=== PATIENT | male | born 1940 | race Caucasian/White ===

== ENCOUNTER 2019-05-07 08:19 | Day surgery (SDC) | payer MEDICARE ==
[2019-05-07 08:53] LABS: Basophils # (A) 0.1 k/uL (0-0.2); Basophils % (A) 1 %; Eosinophils # (A) 0.4 k/uL (0-0.7); Eosinophils % (A) 3 %; HCT 47.5 % (39.0-53.0); HGB 15.2 gm/dL (13.0-17.5); Lymphocytes # (A) 1.3 k/uL (1.0-4.8); Lymphocytes % (A) 11 %; MCH 34.3 pg (25.0-35.0); MCV 107.3 fL (80.0-100.0); Macrocytosis Moderate; Mean Platelet Volume 7.6; Monocytes # (A) 0.6 k/uL (0-1.0); Monocytes % (A) 5 %; Neutrophils # (A) 9.9 k/uL (1.3-7.7); Neutrophils % (A) 79 %; Platelet Count 239 k/uL (150-450); RBC 4.43 m/uL (4.30-5.90); RDW 14.6 % (11.5-15.5); WBC 12.6 k/uL (3.8-10.6)
[2019-05-07 09:12] LABS: Potassium 4.5 mmol/L (3.5-5.1)
[2019-05-07] MEDS ORDERED: LIDOCAINE 1% INJ 10MG/ML (20 ML MDV) ONE (09:57)
[2019-05-07] MEDS ORDERED: HEPARIN SODIUM,PORCINE 10,000 UNIT/ML 1 ML VIAL ONE (10:00)
[2019-05-07] MEDS ORDERED: GLYCOPYRROLATE 0.2 MG/ML 2 ML VIAL ONE (10:00)
[2019-05-07] MEDS ORDERED: PROTAMINE SULFATE 10 MG/ML 5 ML VIAL IV ONE (10:00)
[2019-05-07] MEDS ORDERED: fentaNYL (PF) 50 MCG/ML 2 ML AMP ONE (10:00)
[2019-05-07] MEDS ORDERED: PHENYLEPHRINE-0.9% NACL SYG 1 MG/10 ML SYRINGE ONE (10:00)
[2019-05-07] MEDS ORDERED: diphenhydrAMINE 50 MG/ML 1 ML VIAL ONE (10:00)
[2019-05-07] MEDS ORDERED: MIDAZOLAM 2 MG/2 ML VIAL ONE (10:00)
[2019-05-07] MEDS ORDERED: SODIUM CHLORIDE 0.9% 1,000 ML IV ONE (10:09)
[2019-05-07] MEDS ORDERED: LIDOCAINE URO-JET JELLY 2% 5 ML KIT URETHRAL ONE (10:31)
[2019-05-07] MEDS ORDERED: ceFAZolin 1,000 MG in SODIUM CHLORIDE 0.9% IRRIGATIO 250 ML IRRIGATION ONE (10:45)
[2019-05-07] MEDS ORDERED: IOPAMIDOL-250 50ML BTL IV ONE (10:48)
[2019-05-07] MEDS ORDERED: LIDOCAINE 1% INJ 10MG/ML (20 ML MDV) SQ ONE (10:55)
[2019-05-07] MEDS ORDERED: ceFAZolin 1,000 MG VIAL IVPB ONE (10:58)
[2019-05-07] MEDS ORDERED: HEPARIN SODIUM (1,000 UNIT/ML) 1,000 UNIT in SODIUM CHLORIDE 0.9% 1,000 ML IRRIGATION ONE (11:25)
[2019-05-07] MEDS ORDERED: HEPARIN SOD,PORK IN 0.45% NACL 25,000 UNIT in 0.45% NACL 1 250ML.BAG IV ONE (13:10)
[2019-05-07] MEDS ORDERED: HYDROcodone/APAP 5-325MG 1 EACH TAB PO PRN (14:51)
[2019-05-07] MEDS ORDERED: ACETAMINOPHEN TAB 325 MG TAB PO PRN (14:51)
[2019-05-07] MEDS: ACETAMINOPHEN IV (For NPO) 1,000 MG in EMPTY BAG 1 BAG IVPB ONE ×2 (16:01→16:16)
[2019-05-07] MEDS: SODIUM CHLORIDE 0.9% 1,000 ML IV SCH (18:32)
[2019-05-07 19:41] VITALS: RESP 18
[2019-05-07] MEDS: SPIRONOLACTONE 25 MG TAB PO SCH (20:43)
[2019-05-07] MEDS ORDERED: MEMANTINE 10 MG TAB PO SCH (21:00)
[2019-05-07] MEDS ORDERED: DONEPEZIL 5 MG TAB PO SCH (21:00)
[2019-05-07] MEDS ORDERED: ATORVASTATIN 40 MG TAB PO SCH (21:00)
--- NOTE | 2019-05-07 23:11 | PCN ---
PROCEDURE NOTE Willian Douglas is an 79-year-old male patient who has been complaining of tiredness, fatigue and shortness of breath with exertion. He has an atrial tachycardia with RVR, heart rates consistently above 110 to 120 beats per minute. He underwent atrial fibrillation ablation about 10 years back in [place]. 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 He was brought into the EP lab in a fasting state. Written informed consent was obtained prior to the procedure. IV antibiotics were administered. His dual-chamber ICD was interrogated and reprogrammed. ICD therapies were turned off and pacing was programmed to a backup pacing of 40 beats per minute. He was in atrial tachycardia at the start of the study. Venous sheaths were placed in the right and left femoral veins, and via these diagnostic mapping and ablation catheters were placed. A long sheath was placed on the right side. The tachycardia cycle length was 270 milliseconds. Coronary sinus catheter was placed. PentaRay catheter was placed. Mapping and ablation catheters were placed. Intracardiac echo catheter was placed. Later the catheters were removed in the His bundle area and the RV. A mapping and ablation catheter was placed in the right atrial isthmus. The coronary sinus catheter showed concentric activation, cycle length of 270 milliseconds. Entrainment mapping showed isthmus dependency with the post-pacing interval within 50 milliseconds of the tachycardia cycle length. Intracardiac echo was performed. Three-D electroanatomic mapping was performed in the right atrial isthmus and an RF line of block was made in the right atrial isthmus, from the tricuspid anulus to the eustachian ridge. This resulted in lengthening of the tachycardia to about 310 milliseconds with a slight change in the activation pattern in the coronary sinus, but the tachycardia did not terminate. A complete RF line of block was made, but the tachycardia continued with a very subtle variation in the activation pattern in the coronary sinus and an increment in the atrial cycle length. Therefore right atrial map was performed. Activation mapping was performed. Earliest activation was a broad early activation in the posteroseptal area. Activation mapping suggested that this was a left atrial exit from the septum. Left and right transseptal catheterization was performed. Intracardiac echocardiography was performed. The interatrial septum was identified. The heart was quite rotated in a clockwise rotation. Successful transseptal catheterization was performed. RA pressure was 14 x 4 x 13 and LA pressures were 23 x 3 x 13 mmHg. A long sheath was placed in the left atrium. A PentaRay catheter was placed in the left atrium and electroanatomic mapping was performed. The earliest activation was along the anterior septum just posterior to the fossa ovalis. The pulmonary veins were also active anteriorly, both on the right side and the left side. The PentaRay catheter was then placed in the right atrium and electroanatomic mapping was performed. Once again the posterior septal area showed an area of broad activation consistent with a left atrial circuit with a left exit. Mapping and ablation catheter was placed in the left atrium. RF ablation was applied at the earliest site, and this resulted in termination of the tachycardia. Following that, pulmonary vein isolation was performed anteriorly both on the right veins and the left vein. Thereafter with pacing maneuvers exit block was proven within the pulmonary veins. AV node Wenckebach block 410 milliseconds, VA Wenckebach block 510 milliseconds. Sinus cycle length 879 milliseconds. NH interval 189 milliseconds, QRS 159 milliseconds with right bundle branch block pattern. QT 459 milliseconds. AH interval 90 milliseconds, HV interval 71 milliseconds. The ICD was then reprogrammed according to the MADIT-RIT programming with 3 detection zones with long detection intervals. Appropriate antitachycardia pacing, cardioversion and defibrillations were programmed. The patient was heparinized through the procedure. At the end of the procedure, the heparin was reversed. Anticoagulation with Xarelto was continued. RESULT: Diagnostic EP study revealing 2 simultaneous atrial tachycardias, one typical atrial flutter which was proved with entrainment mapping, and the second a fairly focal tachycardia in the anterior septum just posterior to the fossa ovalis. Tachycardia was successfully terminated. Following that, pulmonary vein isolation was performed along the anterior antrum on both veins. We demonstrated exit block in all 4 veins. The patient tolerated the procedure well without any acute complications. MMODL / IJN: [id number] /
--- NOTE | 2019-05-07 23:17 | PCN ---
PROCEDURE NOTE May 07, 2019 To: Dr. Boris Stovall Re: Willian Douglas (38) Dear Dr. Stovall, Willian Douglas underwent diagnostic EP study for an atrial tachycardia. He had simultaneous typical atrial flutter as well as a left atrial tachycardia, both of which were successfully ablated. He resumed sinus rhythm as a result. Following that, his pulmonary veins were isolated. He had an atrial fibrillation ablation almost 10 years back in [place]. I would continue anticoagulation for now and continue his cardiac medications. Thank you for entrusting me with the care of your patient. Warm regards. Sincerely, MD ROSA ISELA Lorenzo / ELIANN: [id number] /
[2019-05-08] MEDS: SPIRONOLACTONE 25 MG TAB PO SCH (08:14)
[2019-05-08] MEDS ORDERED: FUROSEMIDE 40 MG TAB PO STA (08:38)
[2019-05-08] MEDS: SODIUM CHLORIDE 0.9% 1,000 ML IV SCH (08:45)
[2019-05-08] MEDS ORDERED: RIVAROXABAN 20 MG TAB PO SCH (09:00)
[2019-05-08] MEDS ORDERED: LISINOPRIL 10 MG TAB PO SCH (09:00)
[2019-05-08] MEDS ORDERED: METOPROLOL SUCCINATE (ER) 100 MG TAB.ER.24H PO SCH (09:00)
--- NOTE | 2019-05-08 09:20 | P.DS ---
Providers Attending physician: Gianluca Anderson Primary care physician: [facility] Course: Patient is an 79-year-old male with a past medical history of CAD status post CABG, atrial fibrillation status post A. fib ablation and maze procedure, ischemic cardiomyopathy status post ICD placement, and atrial tachycardia with RVR who presented for evaluation and management atrial tachycardia. He had been symptomatic with shortness of breath and fatigue. Yesterday, he underwent a diagnostic EP study revealing to simultaneous atrial tachycardias and subsequently underwent successful typical atrial flutter ablation, focal atrial tachycardia ablation, as well as pulmonary vein isolation using RF. His ICD was reprogrammed after. Patient tolerated the procedure well, no acute issues overnight. Patient seen and examined resting comfortably in bed. No chest pain, shortness of breath, orthopnea or PND. Patient ate breakfast this morning, no dysphagia or odynophagia. Patient has not gotten up and walked around yet today. EKG today shows atrial paced rhythm, right bundle branch block pattern WBC 12.6, hemoglobin 15.2, platelets 239, potassium 4.5, BUN 19, creatinine 1.09 exam: Temperature 98.4F, pulse 60, respirations 18, blood pressure 94/55, oxygen saturation 94% on room air Patient seen and examined resting comfortably in bed, in no acute distress Lungs only diminished but clear bilaterally, no crackles rhonchi or wheezing heart is regular No elevated JVD No lower extremity edema Bilateral groins nontender to palpation, no hematomas Impression Typical Atrial flutter status post successful atrial flutter ablation with RF Focal atrial tachycardia status post successful ablation with RF Atrial fibrillation status post A. fib ablation Ischemic cardiomyopathy status post ICD placement CAD status post CABG Plan Encouraged patient to get up and walk around and reassess his symptoms Discharge in the late afternoon as long as he is able to get up and walk around without any dizziness Continue all cardiac medications including anticoagulation with Xarelto Plan - Discharge Summary New Discharge Prescriptions: No Action Metoprolol Succinate [Toprol XL] 100 mg PO DAILY Donepezil [Aricept] 5 mg PO HS Rivaroxaban [Xarelto] 20 mg PO DAILY Atorvastatin [Lipitor] 40 mg PO HS Memantine [Namenda] 10 mg PO HS Spironolactone [Aldactone] 25 mg PO BID Ramipril 2.5 mg PO DAILY Discharge Medication List Atorvastatin [Lipitor] 40 mg PO HS 05/07/19 [History] Donepezil [Aricept] 5 mg PO HS 05/07/19 [History] Memantine [Namenda] 10 mg PO HS 05/07/19 [History] Metoprolol Succinate [Toprol XL] 100 mg PO DAILY 05/07/19 [History] Ramipril 2.5 mg PO DAILY 05/07/19 [History] Rivaroxaban [Xarelto] 20 mg PO DAILY 05/07/19 [History] Spironolactone [Aldactone] 25 mg PO BID 05/07/19 [History] Follow up Appointment(s)/Referral(s): Gianluca Anderson MD [STAFF PHYSICIAN] - 05/11/19 12:00 pm (follow up with Dr. Anderson/Alissa Chester/Jordyn Garcia in one to 2 weeks) Activity/Diet/Wound Care/Special Instructions: Post EP study - Ablation instructions 1. Keep access sites dry for 2 days. 2. No heavy lifting or straining for 2 days. 3. Avoid bending the hips repeatedly for 2 days. 4. You may go up and down stairs slowly Call if the following is noted 1. Bleeding, increasing swelling or pain at the access sites. 2. Increasing chest discomfort, especially upon taking a deep breath. 3. Increasing shortness of breath, at rest or with exertion. 4. Undue cough / phlegm 5. Difficulty or pain while swallowing. 6. Pain or change in color in the extremities. 7. Fever, chills, rigors. 8. Increasing headache or neurologic symptoms. 9. Dizziness, fainting, palpitations Continue all current medications including anticoagulation with Xarelto
[2019-05-08 12:08] VITALS: BP 111/65; PULSE 59; TEMP 98.2
== END 2019-05-08 16:30 | disposition home or self-care (01) ==
LOC: CATHEP 08:19 → 1SOBS 14:50 → CATHEP 05-08 16:30
PROVIDERS: ATTEND Internal Medicine Clinical Cardiac Electrophysiology
DX: I48.19 Other persistent atrial fibrillation (principal); I47.1 Supraventricular tachycardia; I25.5 Ischemic cardiomyopathy; I25.10 Atherosclerotic heart disease of native coronary artery without angina pectoris; I10 Essential (primary) hypertension; Z87.891 Personal history of nicotine dependence; E78.5 Hyperlipidemia, unspecified; I34.0 Nonrheumatic mitral (valve) insufficiency; Z95.1 Presence of aortocoronary bypass graft; Z95.5 Presence of coronary angioplasty implant and graft; Z95.810 Presence of automatic (implantable) cardiac defibrillator; Z90.79 Acquired absence of other genital organ(s); Z85.46 Personal history of malignant neoplasm of prostate; F03.90 Unspecified dementia, unspecified severity, without behavioral disturbance, psychotic disturbance, mood disturbance, and anxiety; Z82.49 Family history of ischemic heart disease and other diseases of the circulatory system; Z79.01 Long term (current) use of anticoagulants; Z79.899 Other long term (current) drug therapy
CPT/HCPCS: 97162; 85347; 93662; 93613; 93656; 80048; 85025; C1759; C1894; C1769 ×3; C1731; C1893; C1732; J2250; J2720; J1200; J1644 ×3; J0690; J2001; J3010; J0131; J2370; Q9966; 93280; 93653

== ENCOUNTER 2019-06-24 12:55 | Inpatient (IN) | payer MEDICARE ==
[2019-06-24] MEDS ORDERED: SODIUM CHLORIDE 0.9% 1,000 ML IV STA (13:00)
[2019-06-24 13:25] LABS: Basophils # (A) 0.1 k/uL (0-0.2); Basophils % (A) 1 %; Eosinophils # (A) 0.2 k/uL (0-0.7); Eosinophils % (A) 3 %; HCT 39.3 % (39.0-53.0); HGB 13.5 gm/dL (13.0-17.5); Lymphocytes # (A) 0.8 k/uL (1.0-4.8); Lymphocytes % (A) 9 %; MCH 35.7 pg (25.0-35.0); MCHC 34.4 g/dL (31.0-37.0); MCV 103.8 fL (80.0-100.0); Macrocytosis Slight; Mean Platelet Volume 6.4; Monocytes # (A) 0.4 k/uL (0-1.0); Monocytes % (A) 4 %; Neutrophils # (A) 7.3 k/uL (1.3-7.7); Neutrophils % (A) 82 %; Platelet Count 198 k/uL (150-450); RBC 3.79 m/uL (4.30-5.90); RDW 14.4 % (11.5-15.5); WBC 8.9 k/uL (3.8-10.6)
--- NOTE | 2019-06-24 13:25 | ED ---
Syncope HPI - General Stated Complaint: Near Syncope Time Seen by Provider: 06/24/19 12:55 Source: patient, family, RN notes reviewed - History of Present Illness Initial Comments: This is a 79-year-old male with a history of fibrillation with a recent ablation about a month ago also history of CVA history of some dementia who was at a zoroastrian function today had just finished eating when he felt lightheaded dizzy and almost passed out. He states he was unable to respond but he doesn't was aware of the situation and of his surroundings. He was found have what appears be atrial fibrillation with rapid ventricular response initially he had thready pulses but had a blood pressure was about 160 systolic he was given IV fluids the rate came down to about 08/21/2027 per paramedics. Pulses also were in the 120s but as high as 140's reported. No focal weakness reported at this time fevers chills nausea vomiting sweats he was feeling well prior to this. No nausea vomiting reported no focal weakness again no other modifying factors this time. MD Complaint: almost passed out - Related Data Home Medications Medication Instructions Recorded Confirmed Atorvastatin [Lipitor] 40 mg PO HS 05/07/19 05/07/19 Donepezil [Aricept] 5 mg PO HS 05/07/19 05/07/19 Memantine [Namenda] 10 mg PO HS 05/07/19 05/07/19 Metoprolol Succinate [Toprol XL] 100 mg PO DAILY 05/07/19 05/07/19 Ramipril 2.5 mg PO DAILY 05/07/19 05/07/19 Rivaroxaban [Xarelto] 20 mg PO DAILY 05/07/19 05/07/19 Spironolactone [Aldactone] 25 mg PO BID 05/07/19 05/07/19 Allergies Allergy/AdvReac Type Severity Reaction Status Date / Time No Known Allergies Allergy Verified 05/07/19 08:34 Review of Systems ROS Statement: Those systems with pertinent positive or pertinent negative responses have been documented in the HPI. ROS Other: All systems not noted in ROS Statement are negative. Past Medical History Past Medical History: Atrial Flutter, Cancer, CVA/TIA, Dementia, Memory Impairment, Myocardial Infarction ([place]), Prostate Disorder Additional Past Medical History / Comment(s): prostate cancer, cva 2008 Last Myocardial Infarction Date:: 2013 History of Any Multi-Drug Resistant Organisms: None Reported Past Surgical History: Ablation, Appendectomy, Heart Catheterization With Stent, Pacemaker Additional Past Surgical History / Comment(s): cardiac cath with about 5 stents, pacer, aicd, prostate removal Past Anesthesia/Blood Transfusion Reactions: No Reported Reaction Date of Last Stent Placement:: 2013 Type of Cardiac Device: Permanent Pacemaker, AICD Device Placement Date:: 2008 Past Psychological History: No Psychological Hx Reported Smoking Status: Former smoker Past Alcohol Use History: None Reported, Occasional Additional Past Alcohol Use History / Comment(s): smoked for a couple years in his 20's General Exam - General Exam Comments Initial Comments: This is a well-developed well-nourished male who is awake alert oriented 3 General appearance: alert, in no apparent distress Head exam: Present: atraumatic, normocephalic, normal inspection Eye exam: Present: normal appearance, PERRL, EOMI. Absent: scleral icterus, conjunctival injection, periorbital swelling ENT exam: Present: normal exam, mucous membranes moist Neck exam: Present: normal inspection, full ROM, other (No stridor JVD or bruits). Absent: tenderness, meningismus, lymphadenopathy Respiratory exam: Present: normal lung sounds bilaterally. Absent: respiratory distress, wheezes, rales, rhonchi, stridor Cardiovascular Exam: Present: tachycardia, irregular rhythm. Absent: systolic murmur, diastolic murmur, rubs, gallop, clicks GI/Abdominal exam: Present: soft, normal bowel sounds. Absent: distended, tenderness, guarding, rebound, rigid Extremities exam: Present: normal inspection, full ROM, normal capillary refill. Absent: tenderness, pedal edema, joint swelling, calf tenderness Back exam: Present: normal inspection Neurological exam: Present: alert, oriented X3, CN II-XII intact Psychiatric exam: Present: normal affect, normal mood Skin exam: Present: warm, dry, intact, normal color. Absent: rash EKG Findings - EKG Results: EKG: interpreted by ABENA (Atrial flutter with a variable AV block PVCs versus aberrantly conduction rate was 117 QRS 144 QT since QTC 32/532> block inferior changes noted.) Medical Decision Making - Medical Decision Making I did reevaluate patient on multiple occasions he has had no further episodes he does remain in the atrial flutter rate with elevated response time. IV Cardizem has been started. Patient be admitted the case was discussed with Dr. Bourgeois who did come the emergency department see the patient. Cardiology will be consulted. Patient does see Dr. Anderson - Lab Data Result diagrams: 06/24/19 13:17 06/24/19 13:17 Lab Results 06/24/19 06/24/19 06/24/19 Range/Units 13:17 13:17 13:17 WBC 8.9 (3.8-10.6) k/uL RBC 3.79 L (4.30-5.90) m/uL Hgb 13.5 (13.0-17.5) gm/dL Hct 39.3 (39.0-53.0) % MCV 103.8 H (80.0-100.0) fL MCH 35.7 H (25.0-35.0) pg MCHC 34.4 (31.0-37.0) g/dL RDW 14.4 (11.5-15.5) % Plt Count 198 (150-450) k/uL Neutrophils % 82 % Lymphocytes % 9 % Monocytes % 4 % Eosinophils % 3 % Basophils % 1 % Neutrophils # 7.3 (1.3-7.7) k/uL Lymphocytes # 0.8 L (1.0-4.8) k/uL Monocytes # 0.4 (0-1.0) k/uL Eosinophils # 0.2 (0-0.7) k/uL Basophils # 0.1 (0-0.2) k/uL Macrocytosis Slight PT 11.8 (9.0-12.0) sec INR 1.1 (<1.2) APTT 27.7 (22.0-30.0) sec Sodium 141 (137-145) mmol/L Potassium 4.4 (3.5-5.1) mmol/L Chloride 109 H (98-107) mmol/L Carbon Dioxide 23 (22-30) mmol/L Anion Gap 9 mmol/L BUN 22 H (9-20) mg/dL Creatinine 1.17 (0.66-1.25) mg/dL Est GFR (CKD-EPI)AfAm 68 (>60 ml/min/1.73 sqM) Est GFR (CKD-EPI)NonAf 59 (>60 ml/min/1.73 sqM) Glucose 120 H (74-99) mg/dL Calcium 8.2 L (8.4-10.2) mg/dL Magnesium 2.0 (1.6-2.3) mg/dL Total Bilirubin 0.9 (0.2-1.3) mg/dL AST 26 (17-59) U/L ALT 28 (21-72) U/L Alkaline Phosphatase 51 (38-126) U/L Creatine Kinase 57 (55-170) U/L Troponin I (0.000-0.034) ng/mL Total Protein 6.2 L (6.3-8.2) g/dL Albumin 3.5 (3.5-5.0) g/dL 06/24/19 Range/Units 13:17 WBC (3.8-10.6) k/uL RBC (4.30-5.90) m/uL Hgb (13.0-17.5) gm/dL Hct (39.0-53.0) % MCV (80.0-100.0) fL MCH (25.0-35.0) pg MCHC (31.0-37.0) g/dL RDW (11.5-15.5) % Plt Count (150-450) k/uL Neutrophils % % Lymphocytes % % Monocytes % % Eosinophils % % Basophils % % Neutrophils # (1.3-7.7) k/uL Lymphocytes # (1.0-4.8) k/uL Monocytes # (0-1.0) k/uL Eosinophils # (0-0.7) k/uL Basophils # (0-0.2) k/uL Macrocytosis PT (9.0-12.0) sec INR (<1.2) APTT (22.0-30.0) sec Sodium (137-145) mmol/L Potassium (3.5-5.1) mmol/L Chloride (98-107) mmol/L Carbon Dioxide (22-30) mmol/L Anion Gap mmol/L BUN (9-20) mg/dL Creatinine (0.66-1.25) mg/dL Est GFR (CKD-EPI)AfAm (>60 ml/min/1.73 sqM) Est GFR (CKD-EPI)NonAf (>60 ml/min/1.73 sqM) Glucose (74-99) mg/dL Calcium (8.4-10.2) mg/dL Magnesium (1.6-2.3) mg/dL Total Bilirubin (0.2-1.3) mg/dL AST (17-59) U/L ALT (21-72) U/L Alkaline Phosphatase (38-126) U/L Creatine Kinase (55-170) U/L Troponin I 0.020 (0.000-0.034) ng/mL Total Protein (6.3-8.2) g/dL Albumin (3.5-5.0) g/dL - Radiology Data Radiology results: report reviewed (I did review the imaging and reports no acute findings are seen.), image reviewed Disposition Clinical Impression: Near syncope, Atrial flutter with rapid ventricular response Disposition: ADMITTED IP TO THIS HOSP Condition: Fair Referrals: Cathleen Crow MD [Primary Care Provider] - 1-2 days
[2019-06-24 13:34] LABS: Albumin 3.5 g/dL (3.5-5.0); Calcium 8.2 mg/dL (8.4-10.2); INR 1.1 (<1.2); Partial Thromboplastin Time 27.7 sec (22.0-30.0); Prothrombin Time 11.8 sec (9.0-12.0); Total Bilirubin 0.9 mg/dL (0.2-1.3); Total Protein 6.2 g/dL (6.3-8.2)
--- NOTE | 2019-06-24 13:41 | CT ---
EXAMINATION TYPE: CT brain wo con DATE OF EXAM: 06/24/2019 COMPARISON: None HISTORY: 79-year-old male Syncope TECHNIQUE: Examination was done in axial plane without intravenous contrast. Coronal and sagittal r econstructions performed. CT DLP: 1072.4 mGycm Automated exposure control for dose reduction was used. FINDINGS: There is no evidence of acute intracranial hemorrhage, acute ischemic changes, mass, mass-effect, or extra-axial fluid collection. There is no effacement of cerebral sulci or basal subarachnoid cister ns. There is no hydrocephalus. There is no midline shift. Mckeon-white matter distinction is preserv ed. Incidental vertebrobasilar dolichoectasia of the vertebral artery measuring 6 mm in the basilar arter y measuring 6.5 mm. Nonemergent follow-up MRA or CTA can provide further assessment. Scattered air within the dural venous sinuses and partially visualized within a right-sided facial ve in. Also within the cavernous sinuses. Mild generalized supratentorial volume loss. Severe mucosal thickening right maxillary sinus with chronic bony wall thickening of the maxillary si nus. Scattered moderate mucosal thickening ethmoid air cells and mild left maxillary sinus. Mastoid a ir cells are well pneumatized. IMPRESSION: 1. Mild generalized atrophy. No acute intracranial abnormality seen. 2. Scattered dural venous sinus and cavernous sinus air as well as air partially visualized within a right facial vein. Findings may reflect air introduced during peripheral line placement. Correlate to exclude other venous injections. 3. Vertebrobasilar dolichoectasia. Nonemergent follow-up MRA or CTA can provide further assessment. 4. Chronic long-standing ethmoid and maxillary sinus disease.
[2019-06-24 13:43] LABS: Potassium 4.4 mmol/L (3.5-5.1)
--- NOTE | 2019-06-24 13:48 | XR ---
EXAMINATION TYPE: XR chest 2V DATE OF EXAM: 06/24/2019 COMPARISON: None HISTORY: 79-year-old male with syncope TECHNIQUE: AP and lateral views FINDINGS: Left anterior chest wall AICD generator with right atrial and right ventricular leads. Median sternot blaire wires with postoperative clips in the mediastinum. Heart mildly enlarged. Diffuse interstitial densities have a chronic appearance. Some stringy atelect asis at the left base. No consolidation or pleural effusion. IMPRESSION: Cardiomegaly and chronic appearing changes. No definite acute process.
[2019-06-24] MEDS ORDERED: DILTIAZEM 125 MG in SODIUM CHLORIDE 0.9% 100 ML IV SCH (14:30)
[2019-06-24] MEDS ORDERED: NALOXONE 0.4 MG/ML 1 ML VIAL IV PRN (14:58)
[2019-06-24] MEDS: SODIUM CHLORIDE 0.9% 1,000 ML IV SCH (16:51)
[2019-06-24 19:50] LABS: Appearance,Urine Clear (Clear); Bilirubin,Urine Negative (Negative); Blood,Urine Negative (Negative); Color,Urine Yellow; Glucose,Urine (UA) Negative (Negative); Ketones,Urine Negative (Negative); Leukocyte Esterase,Urine Negative (Negative); Nitrite,Urine Negative (Negative); Protein,Urine Negative (Negative); Specific Gravity,Urine 1.019 (1.001-1.035); Urobilinogen,Urine <2.0 mg/dL (<2.0)
[2019-06-24] MEDS: MEMANTINE 10 MG TAB PO SCH (20:03)
[2019-06-24] MEDS: ATORVASTATIN 40 MG TAB PO SCH (20:03)
[2019-06-24] MEDS: DONEPEZIL 5 MG TAB PO SCH (20:03)
[2019-06-24] MEDS: SPIRONOLACTONE 25 MG TAB PO SCH (20:03)
[2019-06-24] MEDS: TEMAZEPAM 15 MG CAP PO PRN (22:25)
[2019-06-25] MEDS: SODIUM CHLORIDE 0.9% 1,000 ML IV SCH ×2 (00:05→19:51)
--- NOTE | 2019-06-25 01:54 | P.HPIM ---
History of Present Illness H&P Date: 06/24/19 Chief Complaint: Near syncope Patient is a 79-year-old male with a known history of atrial fibrillation on anticoagulation with Eliquis, status post ablation about a month ago, history of CVA/TIA, dementia and memory impairment, BPH and history of coronary artery disease status post stent placement was brought to the hospital due to dizziness and near syncope. Patient was sitting at buddhism and was attending a pot lock lunch where he felt sudden dizziness and lightheaded and almost passed out. Patient was unable to respond for a few minutes. Patient was brought to the hospital where EMS. Patient was found to be in atrial fibrillation with rapid ventricular rate. Denied any complaints of headache. No fever no chills. No complaints of chest pain or palpitations. Denied any nausea vomiting. No abdominal pain. No dysuria or hematuria. No focal weakness was noted. No seizure activity was noted as well. Chest x-ray showed Cardiomegaly and chronic appearing changes. No definitive acute process. CT head mild generalized atrophy. No acute intracranial abnormalities seen. Chronic ethmoid sinusitis.. EKG showed atrial flutter with variable block. Review of Systems Constitutional: Patient denies any fever or chills . No generalized weakness or weight loss. Abdomen: Patient denied nausea vomiting and diarrhea and abdominal pain. Cardiovascular: Patient denies any chest pain or short of breath no palp itations. Respiratory: patient denied any cough is from production. No shortness of breath Neurologic: Patient denied any numbness or tingling headache. Dizziness and lightheaded. Musculoskeletal: Patient denies any complaints of joint swelling or deformity. Skin: Negative Psychiatric: Negative Endocrine: No heat or cold intolerance. No recent weight gain. Genitourinary: No dysuria or hematuria. All other 14 point ROS negative except the above Past Medical History Past Medical History: Atrial Flutter, Cancer, CVA/TIA, Dementia, Memory Impa irment, Myocardial Infarction ([place]), Prostate Disorder Additional Past Medical History / Comment(s): prostate cancer, cva 2008 Last Myocardial Infarction Date:: 2013 History of Any Multi-Drug Resistant Organisms: None Reported Past Surgical History: Ablation, Appendectomy, Heart Catheterization With Stent, Pacemaker Additional Past Surgical History / Comment(s): cardiac cath with about 5 stents, pacer, aicd, prostate removal, ablation with Dr. Anderson in 2018 Past Anesthesia/Blood Transfusion Reactions: No Reported Reaction Date of Last Stent Placement:: 2013 Type of Cardiac Device: Permanent Pacemaker, AICD Device Placement Date:: 2008 Past Psychological History: No Psychological Hx Reported Smoking Status: Former smoker Past Alcohol Use History: None Reported, Occasional Additional Past Alcohol Use History / Comment(s): smoked for a couple years in his 20's Past Drug Use History: None Reported - Past Family History Daughter(s) Family Medical History: Cancer Additional Family Medical History / Comment(s): Leukemia Mother Family Medical History: Cancer Additional Family Medical History / Comment(s): [place]-rectal Brother(s) Family Medical History: Cancer Additional Family Medical History / Comment(s): [place]-rectal CA Medications and Allergies Home Medications Medication Instructions Recorded Confirmed Type Atorvastatin [Lipitor] 40 mg PO HS 05/07/19 06/24/19 History Donepezil [Aricept] 5 mg PO HS 05/07/19 06/24/19 History Memantine [Namenda] 10 mg PO HS 05/07/19 06/24/19 History Metoprolol Succinate [Toprol XL] 100 mg PO DAILY 05/07/19 06/24/19 History Ramipril 2.5 mg PO DAILY 05/07/19 06/24/19 History Rivaroxaban [Xarelto] 20 mg PO DAILY 05/07/19 06/24/19 History Spironolactone [Aldactone] 25 mg PO DAILY 05/07/19 06/24/19 History Allergies Allergy/AdvReac Type Severity Reaction Status Date / Time No Known Allergies Allergy Verified 05/07/19 08:34 Physical Exam Vitals: Vital Signs Temp Pulse Pulse Resp BP BP Pulse Ox 06/24/19 16:00 97.4 F L 110 H 18 131/77 96 06/24/19 15:50 98.0 F 06/24/19 15:39 112 H 20 128/74 98 06/24/19 14:45 116 H 18 100/76 98 06/24/19 14:00 118 H 20 100/60 98 06/24/19 13:00 98.6 F 124 H 124 H 20 112/78 98 Intake and Output 06/24/19 06/24/19 06/24/19 06:59 14:59 22:59 Intake Total 360 Balance 360 Intake: Oral 360 Other: Weight 100.244 kg PHYSICAL EXAMINATION: Patient is lying in the bed comfortably, no acute distress, awake alert and oriented.. HEENT: Normocephalic. Neck is supple. Pupils reactive. Nostrils clear. Oral cavity is moist. Ears reveal no drainage. Neck reveals no JVD, carotid bruits, or thyromegaly. CHEST EXAMINATION: Trachea is central. Symmetrical expansion. Bibasilar diminished air entry. Lung guardado clear to auscultation and percussion. CARDIAC: Normal S1, S2 with no gallops. No murmurs . Irregularly irregular rhythm. ABDOMEN: Soft. Bowel sounds normal. No organomegaly. No abdominal bruits. Extremities: reveal no edema. No clubbing or cyanosis Neurologically awake, alert, oriented x3 with mild cognitive impairment. well- coordinated movements. No focal deficits noted Skin: No rash or skin lesions. Psychiatric: Coperative. Nonsuicidal Musculoskeletal: No joint swelling or deformity. Normal range of motion. Results CBC & Chem 7: 06/24/19 13:17 06/24/19 13:17 Labs: Abnormal Lab Results - Last 24 Hours (Table) 06/24/19 06/24/19 Range/Units 13:17 13:17 RBC 3.79 L (4.30-5.90) m/uL MCV 103.8 H (80.0-100.0) fL MCH 35.7 H (25.0-35.0) pg Lymphocytes # 0.8 L (1.0-4.8) k/uL Chloride 109 H (98-107) mmol/L BUN 22 H (9-20) mg/dL Glucose 120 H (74-99) mg/dL Calcium 8.2 L (8.4-10.2) mg/dL Total Protein 6.2 L (6.3-8.2) g/dL Thrombosis Risk Factor Assmnt - DVT/VTE Prophylaxis DVT/VTE Prophylaxis: Pharmacologic Prophylaxis ordered - Choose All That Apply Any of the Below Risk Factors Present?: No Each Risk Factor Represents 3 Points: Age 75 years or older Thrombosis Risk Factor Assessment Total Risk Factor Score: 3 Thrombosis Risk Factor Assessment Level: Moderate Risk Assessment and Plan Assessment: Atrial flutter with a rapid ventricular rate. Dizziness and lightheadedness and near syncope secondary to above Atrial fibrillation with recent history of ablation about a month ago. Currently on anticoagulation with xarelto. History of CVA/TIA Dementia History of [place] History of prostate cancer Coronary artery disease with history of stent placement Previous history of smoking Cor status is DO NOT RESUSCITATE/DO NOT INTUBATE. Plan: Patient will be continued on Cardizem drip. Gentle hydration. Continue the home medications including xarelto. Cardiology was consulted follow closely. Follow-up TSH, B12 levels. Further recommendations based on the clinical course. Time with Patient: Greater than 30
[2019-06-25 06:09] LABS: HCT 38.9 % (39.0-53.0); HGB 13.3 gm/dL (13.0-17.5); MCH 35.9 pg (25.0-35.0); MCHC 34.2 g/dL (31.0-37.0); MCV 104.9 fL (80.0-100.0); Macrocytosis Moderate; Mean Platelet Volume 6.3; Platelet Count 196 k/uL (150-450); RBC 3.71 m/uL (4.30-5.90); RDW 14.3 % (11.5-15.5); WBC 11.3 k/uL (3.8-10.6)
[2019-06-25 06:21] LABS: African American GFR (CKD) >90 (>60 ml/min/1.73 sqM); Anion Gap 7 mmol/L; Blood Urea Nitrogen 18 mg/dL (9-20); Calcium 8.2 mg/dL (8.4-10.2); Carbon Dioxide 22 mmol/L (22-30); Chloride 112 mmol/L (98-107); Glucose 103 mg/dL (74-99); Non-African American GFR(CKD) 79 (>60 ml/min/1.73 sqM); Potassium 4.5 mmol/L (3.5-5.1); Sodium 141 mmol/L (137-145)
--- NOTE | 2019-06-25 08:32 | CONS ---
CONSULTATION Mr. Douglas is an 79-year-old male with known history of coronary artery disease, status post coronary artery bypass grafting, history of cardiomyopathy, status post ICD implantation as well as atrial fibrillation and atrial tachycardia who underwent ablation by Dr. Anderson in May of this year. He presented to the emergency room with a syncopal episode. He was sitting at a potluck dinner at spiritism when he felt dizzy and warm and then he had a syncopal episode that was brief. He did not have any associated tonic-clonic seizure or loss of bladder control. He denies any chest discomfort. According to him, his breathing has been stable. He has no palpitation. He did not feel any different after the ablation. He was in atrial fibrillation with rapid ventricular response on presentation. The device was interrogated and there is no evidence of ventricular tachycardia. The patient's activity has been stable according to him. He had no prior syncopal episodes. He denies any peripheral edema. No clear PND nor orthopnea. His coronary risk factors are positive for hypertension and hyperlipidemia. He is a nonsmoker, nondiabetic. MEDICATION: His medications include Aldactone 25 mg daily, Xarelto 20 mg daily, ramipril 2.5 mg daily, metoprolol succinate 100 mg daily, Namenda, Aricept, and Lipitor 40 mg daily. REVIEW OF SYSTEMS: RESPIRATORY SYSTEM: He denies recent wheezing or cough. No history of obstructive lung disease. GI SYSTEM: No recent GI bleed. No peptic ulcer disease. SYSTEM: No dysuria or hematuria. NERVOUS SYSTEM: He had a stroke according to him 5 years ago. PHYSICAL EXAMINATION: An 79-year-old male, alert, in no apparent distress. Blood pressure 130/70 with the heart rate in the 80s. HEAD: Normocephalic. EYES: Sclerae anicteric. NECK: Good upstroke, no bruit. LUNGS: Clear to auscultation. HEART: Irregular, irregular, S1, S2. No S3 with a systolic ejection murmur heard at the base. No diastolic murmur. No rub. ABDOMEN: Soft, nontender. Positive bowel sounds. No organomegaly. EXTREMITIES: No edema, intact distal pulses. LAB DATA: Lab data revealed BUN and creatinine of 18 and 0.91, potassium 4.5. Troponin 0.02. Hemoglobin of 13.3. TSH of 2.67. EKG revealed atrial fibrillation with right bundle branch block and evidence to suggest inferior myocardial infarction of unknown age. Chest x-ray shows no acute infiltrate. IMPRESSION: 1. Syncopal episode of unclear etiology. No evidence of ventricular tachycardia on the interrogation of his device. 2. Atrial fibrillation, recurrent, post ablation. 3. History of coronary artery disease, status post coronary artery bypass grafting with no evidence of acute coronary syndrome. 4. Ischemic cardiomyopathy. 5. History of hypertension. 6. Hyperlipidemia. RECOMMENDATION: I will stop the IV Cardizem. I will increase the dose of his Toprol. I will obtain an echocardiogram with Doppler. We will continue to monitor him on the telemetry, increase his level activity gradually and depending on his progress, further recommendation will be made. Thank you for this consult. We will follow with you. CAESARL / IJN: [id number] /
[2019-06-25] MEDS ORDERED: METOPROLOL SUCCINATE (ER) 100 MG TAB.ER.24H PO SCH (09:00)
[2019-06-25] MEDS: METOPROLOL SUCCINATE (ER) 50 MG TAB.ER.24H PO SCH (09:00)
[2019-06-25] MEDS: SPIRONOLACTONE 25 MG TAB PO SCH ×2 (09:00→19:49)
[2019-06-25] MEDS: LISINOPRIL 10 MG TAB PO SCH (09:01)
[2019-06-25] MEDS: RIVAROXABAN 20 MG TAB PO SCH (09:01)
--- NOTE | 2019-06-25 10:21 | ECHOF ---
Referral Reason:cm MEASUREMENTS -------- HEIGHT: 180.3 cm WEIGHT: 106.6 kg BP: IVSd: 1.4 cm (0.6 - 1.1) LVIDd: 4.5 cm (3.9 - 5.3) LVPWd: 1.4 cm (0.6 - 1.1) IVSs: 1.7 cm LVIDs: 4.1 cm LVPWs: 1.4 cm Ao Diam: 3.4 cm (2.0 - 3.7) AV Cusp: 1.8 cm (1.5 - 2.6) LA Diam: 4.0 cm (2.7 - 3.8) AV maxP.94 mmHg AV meanP.02 mmHg AR PHT: 524 ms RAP: 5.00 mmHg RVSP: 37.80 mmHg FINDINGS -------- Atrial fibrillation. This was a technically difficult study with suboptimal views. The left ventricular size is normal. There is moderate concentric left ventricular hypertrophy. O verall left ventricular systolic function is severely impaired with, an EF between 20 - 25 %. Left ventricular fillimg pressure cannot be estimated due to Atrial fibrillation. The right ventricle is normal in size. The left atrial size is normal. The right atrial size is normal. Lumason used Aortic valve is trileaflet and is mildly thickened. There is mild aortic regurgitation. There is mild aortic stenosis present. Peak/mean gradient across the Aortic Valve is 19.94mmHg / 10.02mmHg. The mitral valve is normal. The mitral valve leaflets are mildly thickened. Moderate mitral regur gitation is present. No regurgitation noted There is mild pulmonary hypertension. The right ventricular systolic press ure, as measured by Doppler, is 37.80mmHg. There is no pulmonic regurgitation present. The aortic root size is normal. IVC Not well visulized. There is no pericardial effusion. CONCLUSIONS -------- 1. Atrial fibrillation. 2. This was a technically difficult study with suboptimal views. 3. The left ventricular size is normal. 4. There is moderate concentric left ventricular hypertrophy. 5. Overall left ventricular systolic function is severely impaired with, an EF between 20 - 25 %. 6. Left ventricular fillimg pressure cannot be estimated due to Atrial fibrillation. 7. The right ventricle is normal in size. 8. The left atrial size is normal. 9. The right atrial size is normal. 10. Lumason used 11. Aortic valve is trileaflet and is mildly thickened. 12. There is mild aortic regurgitation. 13. There is mild aortic stenosis present. 14. Peak/mean gradient across the Aortic Valve is 19.94mmHg / 10.02mmHg. 15. The mitral valve is normal. 16. The mitral valve leaflets are mildly thickened. 17. Moderate mitral regurgitation is present. 18. No regurgitation noted 19. There is mild pulmonary hypertension. 20. The right ventricular systolic pressure, as measured by Doppler, is 37.80mmHg. 21. There is no pulmonic regurgitation present. 22. The aortic root size is normal. 23. IVC Not well visulized. 24. There is no pericardial effusion. GRAIN PACKER: Viri Verduzco RDCS
--- NOTE | 2019-06-25 10:39 | P.PN ---
Subjective Patient is a 79-year-old male with a known history of atrial fibrillation on anticoagulation with Eliquis, status post ablation about a month ago, history of CVA/TIA, dementia and memory impairment, BPH and history of coronary artery disease status post stent placement was brought to the hospital due to dizziness and near syncope. Patient was sitting at [employer]abaptism and was attending a pot lock lunch where he felt sudden dizziness and lightheaded and almost passed out. Patient was unable to respond for a few minutes. Patient was brought to the hospital where EMS. Patient was found to be in atrial fibrillation with rapid ventricular rate. Denied any complaints of headache. No fever no chills. No complaints of chest pain or palpitations. Denied any nausea vomiting. No abdominal pain. No dysuria or hematuria. No focal weakness was noted. No seizure activity was noted as well. Chest x-ray showed Cardiomegaly and chronic appearing changes. No definitive acute process. CT head mild generalized atrophy. No acute intracranial abnormalities seen. Chronic ethmoid sinusitis.. EKG showed atrial flutter with variable block. 06/25/2019 Patient presents with dizziness and presyncope which is improving today., found to be in A. fib flutter with RVR, cardiology R following the case closely, CT of the brain showing vertebrobasilar disease and air and venous sinuses including the dural and cavernous sinuses as well as some of the facial veins, patient is already started on Xarelto on Mary Anne Ralston and 80 ml/hr his and his Cardizem drip. Was going to be switched to oral medication was more suitable. Also patient has history of dementia with Namenda and Aricept, also for consult neurologist in view of his abnormal CT of the brain. He has mild leukocytosisAt 11.3 K, creatinine is normal at 0.9, liver enzymes not elevated, TSH is normal at 2.6, Review of systems: Constitutional: Patient denies any fever or chills . No generalized weakness or weight loss. Abdomen: Patient denied nausea vomiting and diarrhea and abdominal pain. Cardiovascular: Patient denies any chest pain or short of breath no palpitations. Respiratory: patient denied any cough is from production. No shortness of breath Neurologic: Patient denied any numbness or tingling headache. Dizziness and lightheaded. Musculoskeletal: Patient denies any complaints of joint swelling or deformity. Skin: Negative Psychiatric: Negative Endocrine: No heat or cold intolerance. No recent weight gain. Genitourinary: No dysuria or hematuria. All other 14 point ROS negative except the above Active Medications Generic Name Dose Route Start Last Admin Trade Name Eliseoq PRN Reason Stop Dose Admin Atorvastatin Calcium 40 mg 06/24/19 21:00 06/24/19 20:03 Lipitor PO 40 mg HS DEVORA Administration Donepezil HCl 5 mg 06/24/19 21:00 06/24/19 20:03 Aricept PO 5 mg HS DEVORA Administration Sodium Chloride 1,000 mls @ 80 mls/hr 06/24/19 15:00 06/25/19 00:05 Saline 0.9% IV Not Given .[id number] DEVORA Lisinopril 10 mg 06/25/19 09:00 06/25/19 09:01 Zestril PO 10 mg DAILY DEVORA Administration Memantine 10 mg 06/24/19 21:00 06/24/19 20:03 Namenda PO 10 mg HS DEVORA Administration Metoprolol Succinate 150 mg 06/25/19 09:00 06/25/19 09:00 Toprol Xl PO 150 mg DAILY DEVORA Administration Naloxone HCl 0.2 mg 06/24/19 14:58 Narcan IV Q2M PRN Opioid Reversal Rivaroxaban 20 mg 06/25/19 09:00 06/25/19 09:01 Xarelto PO 20 mg DAILY DEVORA Administration Spironolactone 25 mg 06/24/19 21:00 06/25/19 09:00 Aldactone PO 25 mg BID DEVORA Administration Temazepam 15 mg 06/24/19 22:18 06/24/19 22:25 Restoril PO 15 mg HS PRN Administration Insomnia Objective - Vital Signs Vital signs: Vital Signs Temp 97.9 F 06/25/19 08:00 Pulse 106 H 06/25/19 08:00 Resp 18 06/25/19 08:00 BP 143/73 06/25/19 08:00 Pulse Ox 96 06/25/19 08:00 Intake & Output 06/24/19 06/25/19 06/25/19 18:59 06:59 18:59 Intake Total 360 358 Output Total 275 Balance 360 83 Weight 100.244 kg 107 kg Intake: Oral 360 358 Output: Urine 275 Other: # Voids 1 - Exam GENERAL: The patient is alert and oriented x3, not in any acute distress. Well developed, well nourished. HEENT: Pupils are round and equally reacting to light. EOMI. No scleral icterus. No conjunctival pallor. Normocephalic, atraumatic. No pharyngeal erythema. No thyromegaly. CARDIOVASCULAR: S1 and S2 present. No murmurs, rubs, or gallops. PULMONARY: Chest is clear to auscultation, no wheezing or crackles. ABDOMEN: Soft, nontender, nondistended, normoactive bowel sounds. No palpable organomegaly. MUSCULOSKELETAL: No joint swelling or deformity. EXTREMITIES: No cyanosis, clubbing, or pedal edema. NEUROLOGICAL: Gross neurological examination did not reveal any focal deficits. SKIN: No rashes. no petechiae. - Labs CBC & Chem 7: 06/25/19 05:43 06/25/19 05:43 Labs: Abnormal Lab Results - Last 24 Hours (Table) 06/24/19 06/24/19 06/25/19 Range/Units 13:17 13:17 05:43 WBC (3.8-10.6) k/uL RBC 3.79 L (4.30-5.90) m/uL Hct (39.0-53.0) % MCV 103.8 H (80.0-100.0) fL MCH 35.7 H (25.0-35.0) pg Lymphocytes # 0.8 L (1.0-4.8) k/uL Chloride 109 H 112 H (98-107) mmol/L BUN 22 H (9-20) mg/dL Glucose 120 H 103 H (74-99) mg/dL Calcium 8.2 L 8.2 L (8.4-10.2) mg/dL Total Protein 6.2 L (6.3-8.2) g/dL 06/25/19 Range/Units 05:43 WBC 11.3 H (3.8-10.6) k/uL RBC 3.71 L (4.30-5.90) m/uL Hct 38.9 L (39.0-53.0) % MCV 104.9 H (80.0-100.0) fL MCH 35.9 H (25.0-35.0) pg Lymphocytes # (1.0-4.8) k/uL Chloride (98-107) mmol/L BUN (9-20) mg/dL Glucose (74-99) mg/dL Calcium (8.4-10.2) mg/dL Total Protein (6.3-8.2) g/dL Assessment and Plan Assessment: Atrial flutter with a rapid ventricular rate. 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 Currently on anticoagulation with xarelto. History of CVA/TIA Dementia History of [place] History of prostate cancer Coronary artery disease with history of stent placement Previous history of smoking Cor status is DO NOT RESUSCITATE/DO NOT INTUBATE. Plan: Patient will be continued on Cardizem drip. Gentle hydration. Continue the home medications including xarelto. Cardiology was consulted follow closely. We'll also consult neurology service. Continue with Xarelto Follow-up B12 levels. Further recommendations based on the clinical course.
--- NOTE | 2019-06-25 13:05 | P.CNNES ---
History of Present Illness Consult date: 06/25/19 Reason for Consult: Syncope Chief complaint: Lightheaded, dizzy and almost passed out History of Present Illness: HISTORY OF PRESENT ILLNESS: Thank you for allowing me to evaluate Mr. Willian Douglas. Mr. Douglas is an 79-year-old man with past medical history of atrial flutter, stroke in 2008, dementia, myocardial infarction, prostate cancer, who presented to [facility] after having a near syncopal event. Patient was at [employer], eating, when he felt lightheaded, dizzy and almost passed out. Patient was unable to respond although he was aware of the situation and his surroundings and then he passed out on the table. is at bedside with corroborating information. Patient did not have any abnormal movements. No urinary/bowel incontinence. Patient started waking up after EMS arrived and gave him oxygen and sternal-rubbed him. Patient seemed slightly confused when he woke up but gradually came back to baseline. Patient recently had an ablation procedure as patient continued to be in a.fib and patient also has had a pacemaker/defibrillator for ~5 years. Patient also has been on Xarelto for several years. Patient has never had a similar episode in the past. Patient in ED was found with A.fib with RVR, currently being treated with IV cardizem. PAST MEDICAL HISTORY: atrial flutter, stroke in 2008, dementia, myocardial infarction, prostate cancer PAST SURGICAL HISTORY: Ablation, appendectomy, heart catheterization with stent, pacemaker, prostatectomy HOME MEDICATIONS: Atorvastatin, donepezil, memantine, metoprolol, ramipril, rivaroxaban, spironolactone ALLERGIES: NKDA SOCIAL HISTORY: Former smoker. Occasional alcohol use. REVIEW OF SYSTEMS: The 14 systems are reviewed and no additional points are identified compared to the review of systems documented history and physical PHYSICAL EXAMINATION: VITAL SIGNS: T 97.9 HR 106 RR 18 BP 143/73 O2 sat 96% on RA GEN.: NAD, pleasant and cooperative HEENT: NCAT, sclera without icterus NECK: Supple, no carotid bruit SKIN AND EXTREMITIES: Warm to touch, no edema NEURO: MENTAL STATUS: Patient alert and oriented to self, place, time. Able to name the current president. Speech fluent, able to name and repeat, following all commands readily. No right and left disorientation, neglect. CRANIAL NERVES II THROUGH XII: II: Pupils are equal and reactive to light symmetrically. No afferent pupillary defect. Visual guardado are intact. III, IV, : No ptosis. Extraocular movements full. No nystagmus. V: Facial sensation intact from V1-3. VII. No clear facial asymmetry. VIII: Hearing intact to finger rub bilaterally. IX, X: Symmetric palate elevation. XI: Shoulder shrug intact. XII: Tongue midline without fasciculation or atrophy. MOTOR: Normal bulk/tone. No pronator drift or tremor. Strength is 5/5 throughout all 4 extremities. SENSORY: Intact to light touch in all 4 extremities. Romberg is negative. REFLEXES: 2+ b/l UE extremities. Brisk b/l LE ( states his L leg has been more jerky since the stroke). Toes are downgoing. No clonus. Keyana's is absent COORDINATION: Finger to nose and heel to mendieta intact. No dysmetria. GAIT: Slight limping which patient has had since stroke. Patient at home walks without cane/walker, but when he needs to walk long distances, patient uses 2 canes DIAGNOSTIC TESTING: LABORATORY: WBC 11.3 Hgb 13.3 Platelet 196 Na 141 K 4.5 Cl 112 CO2 22 BUN 18 Cr 0.91 Glucose 103 AST 26 ALT 28 AlkPhos 51 TSH 2.670 Urinarlysis negative Troponin 0.020 IMAGING: CT Head w/o contrast 06/24/19: Mild generalized atrophy. No acute intracranial abnormality seen. Scattered dural venous sinus and cavernous sinus air partially visualized within R facial vein. Vertebrobasilar dolichoectasia. Chronic long-standing ethmoid and maxillary sinus disease ASSESSMENT: 79-year-old man with past medical history of atrial flutter, stroke in 2009, dementia, myocardial infarction, prostate cancer, who presented to [facility] after having a near syncopal event. Patient was found with a.fib with RVR, no seizure-like activity witnessed by family. Patient most likely had his episode due to cardiac etiology. Patient at this time with no new neuro deficits. RECOMMENDATIONS: 1. Will obtain routine EEG 2. Patient needs to continue taking Xarelto. Unable to obtain MRI brain due to pacemaker 3. After reviewing EEG, if no epileptiform activity or focus, Neurology will sign off at this time. Please feel free to contact Neurology again if with additional questions or concerns. Past Medical History Past Medical History: Atrial Flutter, Cancer, CVA/TIA, Dementia, Memory Impairment, Myocardial Infarction (MD), Prostate Disorder Additional Past Medical History / Comment(s): prostate cancer, cva 2008 Last Myocardial Infarction Date:: 2013 History of Any Multi-Drug Resistant Organisms: None Reported Past Surgical History: Ablation, Appendectomy, Heart Catheterization With Stent, Pacemaker Additional Past Surgical History / Comment(s): cardiac cath with about 5 stents, pacer, aicd, prostate removal, ablation with Dr. Anderson in May. 2018 Past Anesthesia/Blood Transfusion Reactions: No Reported Reaction Date of Last Stent Placement:: 2013 Type of Cardiac Device: Permanent Pacemaker, AICD Device Placement Date:: 2008 Past Psychological History: No Psychological Hx Reported Smoking Status: Former smoker Past Alcohol Use History: None Reported, Occasional Additional Past Alcohol Use History / Comment(s): smoked for a couple years in his 20's Past Drug Use History: None Reported - Past Family History Daughter(s) Family Medical History: Cancer Additional Family Medical History / Comment(s): Leukemia Mother Family Medical History: Cancer Additional Family Medical History / Comment(s): [place]-rectal Brother(s) Family Medical History: Cancer Additional Family Medical History / Comment(s): [place]-rectal CA Medications and Allergies Home Medications Medication Instructions Recorded Confirmed Type Atorvastatin [Lipitor] 40 mg PO HS 05/07/19 06/24/19 History Donepezil [Aricept] 5 mg PO HS 05/07/19 06/24/19 History Memantine [Namenda] 10 mg PO HS 05/07/19 06/24/19 History Metoprolol Succinate [Toprol XL] 100 mg PO DAILY 05/07/19 06/24/19 History Ramipril 2.5 mg PO DAILY 05/07/19 06/24/19 History Rivaroxaban [Xarelto] 20 mg PO DAILY 05/07/19 06/24/19 History Spironolactone [Aldactone] 25 mg PO DAILY 05/07/19 06/24/19 History Allergies Allergy/AdvReac Type Severity Reaction Status Date / Time No Known Allergies Allergy Verified 05/07/19 08:34 Physical Examination - Vital Signs Vital Signs: Vital Signs Temp Pulse Pulse Pulse Resp BP BP 06/25/19 08:00 97.9 F 106 H 106 H 18 143/73 06/25/19 04:00 85 18 130/76 06/24/19 23:15 82 18 123/78 06/24/19 20:00 97.6 F 84 18 111/79 06/24/19 16:00 97.4 F L 110 H 18 131/77 06/24/19 15:50 98.0 F 06/24/19 15:39 112 H 20 128/74 06/24/19 14:45 116 H 18 100/76 06/24/19 14:00 118 H 20 100/60 06/24/19 13:00 98.6 F 124 H 124 H 20 112/78 Pulse Ox 06/25/19 08:00 96 06/25/19 04:00 95 06/24/19 23:15 97 06/24/19 20:00 96 06/24/19 16:00 96 06/24/19 15:50 06/24/19 15:39 98 06/24/19 14:45 98 06/24/19 14:00 98 06/24/19 13:00 98 Intake and Output 06/24/19 06/25/19 06/25/19 22:59 06:59 14:59 Intake Total 360 358 Output Total 275 Balance 360 83 Intake: Oral 360 358 Output: Urine 275 Other: # Voids 1 Weight 107 kg Results - Laboratory Findings CBC and BMP: 06/25/19 05:43 06/25/19 05:43 Abnormal Lab Findings: Abnormal Labs 06/24/19 06/24/19 06/25/19 13:17 13:17 05:43 WBC RBC 3.79 L Hct MCV 103.8 H MCH 35.7 H Lymphocytes # 0.8 L Chloride 109 H 112 H BUN 22 H Glucose 120 H 103 H Calcium 8.2 L 8.2 L Total Protein 6.2 L 06/25/19 05:43 WBC 11.3 H RBC 3.71 L Hct 38.9 L MCV 104.9 H MCH 35.9 H Lymphocytes # Chloride BUN Glucose Calcium Total Protein
--- NOTE | 2019-06-25 18:08 | EEG ---
ELECTROENCEPHALOGRAM REPORT PROCEDURE DATE: 06/25/2019. ELECTROENCEPHALOGRAM (EEG) REPORT: TECHNIQUE: A routine 18 channel EEG was performed with video using the 10/20 electrode placement system. HISTORY: Syncope and atrial fibrillation. OTHER MEDICAL HISTORY: Includes dementia, coronary artery disease. The patient was at nondenominational and started to feel dizzy and lightheaded and almost passed out. CURRENT MEDICATIONS: Restoril, Aldactone, Xarelto, Toprol, Namenda, lisinopril. STUDY DURATION: 20 minutes. FINDINGS: Please note that quality of this recording was limited by the presence of muscle artifact secondary to patient movement. Interpretation was performed at 5-microvolt sensitivity. BACKGROUND: The background activity consisted of 7 to 8 hertz rhythmic waveforms symmetrically distributed over both posterior quadrants. ACTIVATION: Hyperventilation: Not performed. Photic stimulation: Mild symmetric driving seen. Sleep: None. ABNORMALITIES: Intermittent diffuse 5-7 hertz polymorphic theta range slowing was seen. Please note that 1 channel of this EEG was dedicated to EKG, at times it did not demonstrate a sinus rhythm. IMPRESSION: Limited study, abnormal EEG. The intermittent diffuse theta range slowing mentioned above is not epileptiform in nature. In combination with the slow background, these findings indicate mild diffuse cerebral dysfunction. No seizures were recorded. No epileptiform activity was present. MMODL / IJN: [id number] / [facility]ITAL[facility]ing
[2019-06-25] MEDS: ATORVASTATIN 40 MG TAB PO SCH (19:49)
[2019-06-25] MEDS: DONEPEZIL 5 MG TAB PO SCH (19:49)
[2019-06-25] MEDS: MEMANTINE 10 MG TAB PO SCH (19:49)
[2019-06-25] MEDS: TEMAZEPAM 15 MG CAP PO PRN (19:55)
[2019-06-26] MEDS: SODIUM CHLORIDE 0.9% 1,000 ML IV SCH (05:51)
[2019-06-26 07:14] LABS: Basophils # (A) 0.1 k/uL (0-0.2); Basophils % (A) 1 %; Eosinophils # (A) 0.3 k/uL (0-0.7); Eosinophils % (A) 2 %; HCT 40.6 % (39.0-53.0); HGB 13.2 gm/dL (13.0-17.5); Lymphocytes % (A) 7 %; MCH 34.2 pg (25.0-35.0); MCHC 32.6 g/dL (31.0-37.0); MCV 104.8 fL (80.0-100.0); Macrocytosis Moderate; Monocytes # (A) 0.7 k/uL (0-1.0); Monocytes % (A) 5 %; Neutrophils # (A) 10.7 k/uL (1.3-7.7); Neutrophils % (A) 83 %; Platelet Count 223 k/uL (150-450); RBC 3.87 m/uL (4.30-5.90); RDW 14.4 % (11.5-15.5); WBC 12.8 k/uL (3.8-10.6)
[2019-06-26 07:38] LABS: Potassium 4.9 mmol/L (3.5-5.1)
[2019-06-26] MEDS: SPIRONOLACTONE 25 MG TAB PO SCH ×2 (07:48→20:58)
[2019-06-26] MEDS: LISINOPRIL 10 MG TAB PO SCH (07:48)
[2019-06-26] MEDS: METOPROLOL SUCCINATE (ER) 50 MG TAB.ER.24H PO SCH (07:48)
[2019-06-26] MEDS: RIVAROXABAN 20 MG TAB PO SCH (07:49)
--- NOTE | 2019-06-26 10:56 | P.PN ---
Subjective Patient is a 79-year-old male with a known history of atrial fibrillation on anticoagulation with Eliquis, status post ablation about a month ago, history of CVA/TIA, dementia and memory impairment, BPH and history of coronary artery disease status post stent placement was brought to the hospital due to dizziness and near syncope. Patient was sitting at [employer] and was attending a pot lock lunch where he felt sudden dizziness and lightheaded and almost passed out. Patient was unable to respond for a few minutes. Patient was brought to the hospital where EMS. Patient was found to be in atrial fibrillation with rapid ventricular rate. Denied any complaints of headache. No fever no chills. No complaints of chest pain or palpitations. Denied any nausea vomiting. No abdominal pain. No dysuria or hematuria. No focal weakness was noted. No seizure activity was noted as well. Chest x-ray showed Cardiomegaly and chronic appearing changes. No definitive acute process. CT head mild generalized atrophy. No acute intracranial abnormalities seen. Chronic ethmoid sinusitis.. EKG showed atrial flutter with variable block. 06/25/2019 Patient presents with dizziness and presyncope which is improving today., found to be in A. fib flutter with RVR, cardiology R following the case closely, CT of the brain showing vertebrobasilar disease and air and venous sinuses including the dural and cavernous sinuses as well as some of the facial veins, patient is already started on Xarelto on Mary Anne Driver and 80 ml/hr his and his Cardizem drip. Was going to be switched to oral medication was more suitable. Also patient has history of dementia with Namenda and Aricept, also for consult neurologist in view of his abnormal CT of the brain. He has mild leukocytosisAt 11.3 K, creatinine is normal at 0.9, liver enzymes not elevated, TSH is normal at 2.6, 06/26/2019 Patient dizziness is improving and his been evaluated by cardiology and neurology with no cause found, EEG showing no epileptiform abnormality but mild diffuse cerebral dysfunction. However patient has trending up leukocytes and today is 12.8 K, patient is complaining of from diarrhea, also he states that he has polyuria and occasional coughing. No dyspnea or chest pain. we will check for C. diff, also we'll check UA and chest x-ray Review of systems: Constitutional: Patient denies any fever or chills . No generalized weakness or weight loss. Abdomen: Patient denied nausea vomiting and abdominal pain. Cardiovascular: Patient denies any chest pain or short of breath no palpitations. Respiratory: patient denied shortness of breath Neurologic: Patient denied any numbness or tingling headache. Dizziness and lightheaded. Musculoskeletal: Patient denies any complaints of joint swelling or deformity. Skin: Negative Psychiatric: Negative Endocrine: No heat or cold intolerance. No recent weight gain. Genitourinary: No dysuria or hematuria. All other 14 point ROS negative except the above Active Medications Generic Name Dose Route Start Last Admin Trade Name Freq PRN Reason Stop Dose Admin Atorvastatin Calcium 40 mg 06/24/19 21:00 06/25/19 19:49 Lipitor PO 40 mg HS DEVORA Administration Donepezil HCl 5 mg 06/24/19 21:00 06/25/19 19:49 Aricept PO 5 mg HS DEVORA Administration Sodium Chloride 1,000 mls @ 80 mls/hr 06/24/19 15:00 06/26/19 05:51 Saline 0.9% IV Not Given .[id number] DEVORA Lisinopril 10 mg 06/25/19 09:00 06/26/19 07:48 Zestril PO 10 mg DAILY DEVORA Administration Memantine 10 mg 06/24/19 21:00 06/25/19 19:49 Namenda PO 10 mg HS DEVORA Administration Metoprolol Succinate 150 mg 06/25/19 09:00 06/26/19 07:48 Toprol Xl PO 150 mg DAILY DEVORA Administration Naloxone HCl 0.2 mg 06/24/19 14:58 Narcan IV Q2M PRN Opioid Reversal Rivaroxaban 20 mg 06/25/19 09:00 06/26/19 07:49 Xarelto PO 20 mg DAILY DEVORA Administration Spironolactone 25 mg 06/24/19 21:00 06/26/19 07:48 Aldactone PO 25 mg BID DEVORA Administration Temazepam 15 mg 06/24/19 22:18 06/25/19 19:55 Restoril PO 15 mg HS PRN Administration Insomnia Objective - Vital Signs Vital signs: Vital Signs Temp 98.2 F 06/26/19 07:30 Pulse 106 H 06/26/19 08:00 Resp 18 06/26/19 08:00 BP 123/93 06/26/19 07:30 Pulse Ox 96 06/26/19 07:30 Intake & Output 06/25/19 06/26/19 06/26/19 18:59 06:59 18:59 Intake Total 950 280 Output Total 925 Balance 25 280 Weight 103.1 kg Intake: IV 20 Invasive Line 1 10 Invasive Line 2 10 Oral 950 260 Output: Urine 925 Other: # Voids 1 - Exam GENERAL: The patient is alert and oriented x3, not in any acute distress. Well developed, well nourished. HEENT: Pupils are round and equally reacting to light. EOMI. No scleral icterus. No conjunctival pallor. Normocephalic, atraumatic. No pharyngeal erythema. No thyromegaly. CARDIOVASCULAR: S1 and S2 present. No murmurs, rubs, or gallops. PULMONARY: Chest is clear to auscultation, no wheezing or crackles. ABDOMEN: Soft, nontender, nondistended, normoactive bowel sounds. No palpable organomegaly. MUSCULOSKELETAL: No joint swelling or deformity. EXTREMITIES: No cyanosis, clubbing, or pedal edema. NEUROLOGICAL: Gross neurological examination did not reveal any focal deficits. SKIN: No rashes. no petechiae. - Labs CBC & Chem 7: 06/26/19 06:29 06/26/19 06:29 Labs: Abnormal Lab Results - Last 24 Hours (Table) 06/26/19 06/26/19 Range/Units 06:29 06:29 WBC 12.8 H (3.8-10.6) k/uL RBC 3.87 L (4.30-5.90) m/uL MCV 104.8 H (80.0-100.0) fL Neutrophils # 10.7 H (1.3-7.7) k/uL Chloride 109 H (98-107) mmol/L Glucose 100 H (74-99) mg/dL Assessment and Plan Assessment: Leukocytosis, rule out infection. Atrial flutter with a rapid ventricular rate. 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 Currently on anticoagulation with xarelto. History of CVA/TIA Dementia History of [place] History of prostate cancer Coronary artery disease with history of stent placement Previous history of smoking Cor status is DO NOT RESUSCITATE/DO NOT INTUBATE. Plan: Patient heart rate is controlled off Cardizem drip. Continue with Gentle hydration. Continue the home medications including xarelto. Cardiology was consulted follow closely. Neurology recommended EEG which was unremarkable for seizure. Continue with anticoagulation. We will check for C. diff, order also urinalysis and chest x-ray Further recommendations based on the clinical course.
[2019-06-26 11:50] LABS: Glucose,Whole Blood 84 mg/dL (75-99)
--- NOTE | 2019-06-26 12:26 | XR ---
EXAMINATION TYPE: XR chest 1V portable DATE OF EXAM: 06/26/2019 COMPARISON: Prior chest 06/24/2019 HISTORY: Congestive heart failure TECHNIQUE: Single frontal view of the chest is obtained. FINDINGS: Patient is post median sternotomy. There is a generator in the left pectoral region, lead p resent in the right atrium and ventricle. There is no focal air space opacity, pleural effusion, or p neumothorax seen. Question some mild interstitial prominence. The cardiac silhouette size is stable and enlarged. The osseous structures are intact. Exam may be limited somewhat by portable technique . IMPRESSION: There may be some mild interstitial edema, technique somewhat limited, follow-up PA and lateral chest x-ray suggested.
[2019-06-26 14:35] LABS: Appearance,Urine Clear (Clear); Bilirubin,Urine Negative (Negative); Blood,Urine Negative (Negative); Color,Urine Light Yellow; Glucose,Urine (UA) Negative (Negative); Ketones,Urine Negative (Negative); Leukocyte Esterase,Urine Negative (Negative); Nitrite,Urine Negative (Negative); Protein,Urine Negative (Negative); Specific Gravity,Urine 1.011 (1.001-1.035); Urobilinogen,Urine <2.0 mg/dL (<2.0)
--- NOTE | 2019-06-26 15:13 | P.PN ---
Subjective Progress Note Date: 06/26/19 Is an 79-year-old gentleman with known history of coronary artery disease and prior bypass surgery, history of ischemic cardiomyopathy status post AICD implantation, paroxysmal atrial fibrillation and atrial tachycardia, patient underwent an ablation procedure by Dr. Anderson in May of this year he pres ented to the hospital with a syncopal episode. On presentation here patient was in atrial fibrillation with rapid ventricular response. His device was interrogated there is no evidence of any ventricular tachycardia and no evidence of any significant pauses. The patient was seen and examined this morning, he feels mildly tired, but doesn't have any dizziness or lightheadedness. Patient continues to be in atrial fibrillation, heart rate staying mostly in the 80s, but when he is up ambulating it does go up into the 1:30 range. Blood pressure 130/86. White blood cell count 12.8, hemoglobin 13.2, platelet count 223. Sodium 141, potassium 4.9, BUN 17, creatinine 1.0. Objective - Vital Signs Vital signs: Vital Signs Temp 98.7 F 06/26/19 12:00 Pulse 86 06/26/19 12:00 Resp 18 06/26/19 12:00 BP 130/86 06/26/19 12:00 Pulse Ox 96 06/26/19 12:00 Intake & Output 06/25/19 06/26/19 06/26/19 18:59 06:59 18:59 Intake Total 950 560 Output Total 925 500 Balance 25 60 Weight 103.1 kg Intake: IV 40 Invasive Line 1 20 Invasive Line 2 20 Oral 950 520 Output: Urine 925 500 Other: # Voids 1 - Exam PHYSICAL EXAMINATION: GENERAL: 79-year-old gentleman in no acute distress at the time of my examination HEENT: Head is atraumatic, normocephalic. Pupils equal, round. Sclera anicteric. Conjunctiva are clear. Mucous membranes of the mouth are moist. Neck is supple. There is no elevated jugular venous pressure.] bruit is heard. HEART EXAMINATION: Heart S1 and S2 irregularly irregular a systolic ejection murmur is CHEST EXAMINATION: Lungs are clear to auscultation and precussion. No chest wall tenderness is noted on palpation or with deep breathing. ABDOMEN: Soft, nontender. Bowel sounds are heard. No organomegaly noted. EXTREMITIES: 2+ peripheral pulses with no evidence of peripheral edema and no calf tenderness noted. NEUROLOGIC patient is awake, alert and oriented 3 . . - Labs CBC & Chem 7: 06/26/19 06:29 06/26/19 06:29 Labs: Abnormal Lab Results - Last 24 Hours (Table) 06/26/19 06/26/19 Range/Units 06:29 06:29 WBC 12.8 H (3.8-10.6) k/uL RBC 3.87 L (4.30-5.90) m/uL MCV 104.8 H (80.0-100.0) fL Neutrophils # 10.7 H (1.3-7.7) k/uL Chloride 109 H (98-107) mmol/L Glucose 100 H (74-99) mg/dL Assessment and Plan Plan: Assessment and plan #1 syncope, unclear etiology, no evidence of ventricular tachycardia or significant pauses on interrogation of device #2 paroxysmal atrial fibrillation, recurrent, post ablation #3 history of coronary artery disease with prior bypass surgery #4 ischemic cardio myopathy #5 hypertension #6 hyperlipidemia Plan Echocardiogram with Doppler study was performed which revealed an ejection fraction of 20-25%, moderate mitral regurgitation. We will continue the patient on his current medication, if heart rate remains elevated we'll consider increasing the dose of beta yareli. DNP note has been reviewed, I agree with a documented findings and plan of care. Patient was seen and examined.
[2019-06-26] MEDS: METOPROLOL TARTRATE 50 MG TAB PO SCH (20:57)
[2019-06-26] MEDS: TEMAZEPAM 15 MG CAP PO PRN (20:57)
[2019-06-26] MEDS: DONEPEZIL 5 MG TAB PO SCH (20:58)
[2019-06-26] MEDS: ATORVASTATIN 40 MG TAB PO SCH (20:58)
[2019-06-26] MEDS: MEMANTINE 10 MG TAB PO SCH (20:58)
[2019-06-27 06:27] LABS: Basophils # (A) 0.1 k/uL (0-0.2); Basophils % (A) 1 %; Eosinophils # (A) 0.4 k/uL (0-0.7); Eosinophils % (A) 3 %; HCT 39.9 % (39.0-53.0); HGB 13.5 gm/dL (13.0-17.5); Lymphocytes # (A) 1.3 k/uL (1.0-4.8); Lymphocytes % (A) 11 %; MCH 35.1 pg (25.0-35.0); MCHC 33.8 g/dL (31.0-37.0); MCV 103.7 fL (80.0-100.0); Macrocytosis Slight; Mean Platelet Volume 6.9; Monocytes # (A) 0.6 k/uL (0-1.0); Monocytes % (A) 5 %; Neutrophils # (A) 8.5 k/uL (1.3-7.7); Neutrophils % (A) 78 %; Platelet Count 207 k/uL (150-450); RBC 3.85 m/uL (4.30-5.90); RDW 14.5 % (11.5-15.5)
--- NOTE | 2019-06-27 08:09 | XR ---
EXAMINATION TYPE: XR chest 2V DATE OF EXAM: 06/27/2019 COMPARISON: Prior chest x-ray 06/26/2019 HISTORY: Dyspnea, follow-up TECHNIQUE: Frontal and lateral views of the chest are obtained. FINDINGS: Patient is post median sternotomy, generator is present in the left pectoral region, there are leads in the right atrium and ventricle. Prominent lung lines with flattening the hemidiaphragms again seen suggesting underlying COPD. The aorta is dense. Coronary artery calcification, stent are present. No evident pneumothorax or pleural effusion. Interstitium is increased. Heart remains enlarg ed. Aorta is dense. IMPRESSION: Difficult to exclude a component of pulmonary venous hypertension and interstitial edema in a patient with pre-existing COPD. Additional follow-up recommended.
--- NOTE | 2019-06-27 08:13 | CDI ---
Documentation Clarification Form Date: 06/27/2019 8:03:56 AM From: Katalina Saldana RN, CCDS Admit Date: 06/26/2019 8:29:00 AM Patient Name: Willian Douglas Visit Number: [id number] ATTENTION: The Clinical Documentation Specialists (CDI) and [facility] Coding Staff appreciate your assistance in clarifying documentation. Please respond to the clarification below the line at the bottom and electronically sign. The CDI & [facility] Coding staff will review the response and follow-up if needed. Please note: Queries are made part of the Legal Health Record. If you have any questions, please contact the author of this message via ITS. Dr. Lopez Sheet Conflicting documentation has been found in the medical record and requires clarification by the Attending MD. Attending Documentation: EKG showed atrial flutter with variable block. Assessment: Atrial flutter with a rapid ventricular rate. Cardiology Documentation: paroxysmal atrial fibrillation, recurrent, post ablation #3 history of coronary artery disease with prior bypass surgery #4 ischemic cardiomyopathy History/Risk Factors: Atrial Fib with ablation, CVA, Dementia Clinical Indicators: EKG: Read by machine as Atrial Flutter. Upon RN visual inspection appears to be atrial fibrillation Treatment: Lopressor 100 mg PO BID In your opinion, what is the most clinically appropriate diagnosis for this patient? Paroxysmal Atrial Fibrillation Atrial Flutter (Please Specify Typical or Atypical) Other explanation of clinical findings Unable to determine (no explanation for clinical findings) (Last Revision: October 2017) chronic atrial fibrillation/flutter MTDD
[2019-06-27] MEDS: SPIRONOLACTONE 25 MG TAB PO SCH (10:28)
[2019-06-27] MEDS: METOPROLOL TARTRATE 50 MG TAB PO SCH (10:28)
[2019-06-27] MEDS: LISINOPRIL 10 MG TAB PO SCH (10:29)
[2019-06-27] MEDS: RIVAROXABAN 20 MG TAB PO SCH (10:29)
[2019-06-27 11:08] VITALS: RESP 20; TEMP 97.5
--- NOTE | 2019-06-27 11:17 | P.PN ---
Subjective Progress Note Date: 06/27/19 Is an 79-year-old gentleman with known history of coronary artery disease and prior bypass surgery, history of ischemic cardiomyopathy status post AICD implantation, paroxysmal atrial fibrillation and atrial tachycardia, patient underwent an ablation procedure by Dr. Anderson in May of this year he pres ented to the hospital with a syncopal episode. On presentation here patient was in atrial fibrillation with rapid ventricular response. His device was interrogated there is no evidence of any ventricular tachycardia and no evidence of any significant pauses. The patient was seen and examined this morning, he feels mildly tired, but doesn't have any dizziness or lightheadedness. Patient continues to be in atrial fibrillation, heart rate staying mostly in the 80s, but when he is up ambulating it does go up into the 1:30 range. Blood pressure 130/86. White blood cell count 12.8, hemoglobin 13.2, platelet count 223. Sodium 141, potassium 4.9, BUN 17, creatinine 1.0. 06/27/2019 Patient was seen and examined this morning, continues to be in atrial fibrillation but his rate is under adequate control. Let pressure 120/80, heart rate in the 70s to 80s. White blood cell count 11.0, hemoglobin 13.5, platelet count 207. Objective - Vital Signs Vital signs: Vital Signs Temp 97.5 F L 06/27/19 08:00 Pulse 94 06/27/19 08:00 Resp 20 06/27/19 08:00 BP 103/76 06/27/19 08:00 Pulse Ox 94 L 06/27/19 08:00 Intake & Output 06/26/19 06/27/19 06/27/19 18:59 06:59 18:59 Intake Total 840 10 360 Output Total 1100 400 Balance -260 -390 360 Weight 101.9 kg Intake: IV 60 10 Invasive Line 1 30 Invasive Line 2 30 10 Oral 780 360 Output: Urine 1100 400 Other: # Voids 1 0 - Exam PHYSICAL EXAMINATION: GENERAL: 79-year-old gentleman in no acute distress at the time of my examination HEENT: Head is atraumatic, normocephalic. Pupils equal, round. Sclera anicteric. Conjunctiva are clear. Mucous membranes of the mouth are moist. Neck is supple. There is no elevated jugular venous pressure.] bruit is heard. HEART EXAMINATION: Heart S1 and S2 irregularly irregular a systolic ejection murmur is CHEST EXAMINATION: Lungs are clear to auscultation and precussion. No chest wall tenderness is noted on palpation or with deep breathing. ABDOMEN: Soft, nontender. Bowel sounds are heard. No organomegaly noted. EXTREMITIES: 2+ peripheral pulses with no evidence of peripheral edema and no c milan tenderness noted. NEUROLOGIC patient is awake, alert and oriented 3 . . - Labs CBC & Chem 7: 06/27/19 06:03 06/26/19 06:29 Labs: Abnormal Lab Results - Last 24 Hours (Table) 06/25/19 06/27/19 Range/Units 05:43 06:03 WBC 11.0 H (3.8-10.6) k/uL RBC 3.85 L (4.30-5.90) m/uL MCV 103.7 H (80.0-100.0) fL MCH 35.1 H (25.0-35.0) pg Neutrophils # 8.5 H (1.3-7.7) k/uL RBC Folate 924 H (280 - 791) ng/mL Assessment and Plan Plan: Assessment and plan #1 syncope, unclear etiology, no evidence of ventricular tachycardia or significant pauses on interrogation of device #2 paroxysmal atrial fibrillation, recurrent, post ablation #3 history of coronary artery disease with prior bypass surgery #4 ischemic cardio myopathy #5 hypertension #6 hyperlipidemia Plan Echocardiogram with Doppler study was performed which revealed an ejection fr action of 20-25%, moderate mitral regurgitation. We will continue the patient on his current medication, make him a follow-up appointment with Dr. Anderson in the office. DNP note has been reviewed, I agree with a documented findings and plan of care. Patient was seen and examined.
[2019-06-27 12:28] VITALS: BP 114/83; PULSE 110
--- NOTE | 2019-06-28 00:02 | DS ---
DISCHARGE SUMMARY DATE OF SERVICE: 06/27/2019 FINAL DIAGNOSES: 1. Syncope, possibly secondary to cardiac arrhythmia. 2. Paroxysmal atrial fibrillation, recurrent, status post ablation. 3. History of coronary artery disease, coronary artery bypass grafting. 4. Ischemic cardiomyopathy. 5. Hypertension. 6. Hyperlipidemia. 7. Dizziness and lightheadedness. 8. 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 9. History of cerebrovascular accident, transient ischemic attack. 10.Dementia. 11.History of myocardial infarction. 12.History of prostate cancer. 13.History of nicotine dependence. 14.NO CODE, NO CPR, NO VENT. DISCHARGE DISPOSITION: The patient will be discharged in stable condition with guarded prognosis. Total time taken 35 minutes. Discharge cleared by multiple consultants. HISTORY OF PRESENT ILLNESS: This 79-year-old gentleman with a past medical history of multiple medical problems was admitted with syncope. The patient also had atrial flutter/fibrillation. Patient was treated with increasing beta blockers by Cardiology. Patient improved significantly. Patient also had dizziness. MRA showed multiple findings and the patient was seen by Neurology and recommended continued outpatient followup. On exam, vitals are stable. CARDIOVASCULAR SYSTEM: S1, S2 muffled. ABDOMEN: Soft. NERVOUS SYSTEM: No focal deficit. DISCHARGE ADVICE AND MEDICATIONS: 1. Discharge diet is cardiac. 2. Activity limited until followup. 3. Follow up with primary physician . 4. Follow up with Cardiology and Neurology as recommended. 5. Aricept 5 mg p.o. at bedtime. 6. Lipitor 40 mg at bedtime. 7. Namenda 10 mg at bedtime. 8. Ramipril 2.5 mg daily. 9. Xarelto 20 mg p.o. daily. 10.Aldactone 25 mg p.o. b.i.d. 11.Lopressor 100 mg p.o. b.i.d. Once again, the patient will be discharged in stable condition with guarded prognosis. MMODL / IJN: [id number] / ANUP
== END 2019-06-27 13:58 | disposition home or self-care (01) | DRG 309 ==
LOC: EC 12:55 → 3SCARD 15:15 → OBSVTOIN 06-26 08:29
PROVIDERS: ADMIT Internal Medicine; ATTEND Internal Medicine
PROC: 4B02XTZ Measurement of Cardiac Defibrillator, External Approach (ICD-10-PCS; principal; 2019-06-24)
DX: I48.92 Unspecified atrial flutter (principal); G45.0 Vertebro-basilar artery syndrome; I48.0 Paroxysmal atrial fibrillation; I25.5 Ischemic cardiomyopathy; F03.90 Unspecified dementia, unspecified severity, without behavioral disturbance, psychotic disturbance, mood disturbance, and anxiety; I34.0 Nonrheumatic mitral (valve) insufficiency; Z66 Do not resuscitate; D72.829 Elevated white blood cell count, unspecified; E78.5 Hyperlipidemia, unspecified; I10 Essential (primary) hypertension; I25.10 Atherosclerotic heart disease of native coronary artery without angina pectoris; J32.2 Chronic ethmoidal sinusitis; I25.2 Old myocardial infarction; N40.0 Benign prostatic hyperplasia without lower urinary tract symptoms; Z79.01 Long term (current) use of anticoagulants; Z79.899 Other long term (current) drug therapy; Z87.891 Personal history of nicotine dependence; Z85.46 Personal history of malignant neoplasm of prostate; Z86.73 Personal history of transient ischemic attack (TIA), and cerebral infarction without residual deficits; Z95.5 Presence of coronary angioplasty implant and graft; Z95.1 Presence of aortocoronary bypass graft; Z95.810 Presence of automatic (implantable) cardiac defibrillator; Z98.890 Other specified postprocedural states; Z80.6 Family history of leukemia; Z80.0 Family history of malignant neoplasm of digestive organs
CPT/HCPCS: 36415; 70450; 71045; 71046; 80048; 80053; 81003; 82550; 82607; 82747; 83735; 84443; 84484; 85025; 85027; 85610; 85730; 93005; 93306; 94760; 95816; 96361; 96365; 99285